=== PATIENT | female | born 1965 | race Caucasian/White ===

== ENCOUNTER → 2017-04-17 | Outpatient (CLI) | payer BC ==
[~2017-04-17] MED LIST: ALEVE220 MG PO; ALLEGRA ALLERG180 MG PO; CALCIUM 600+D1 EAC1 PO; DAILY MULTIPLE1 EACH PO; LISINOPRIL2.5 MG PO; MAGNESIUM400 M1 PO; OSTEO BI-FLEX1 EAC1 PO; SINGULAIR10 MG PO; TYLENOL EXTRA500 MG PO
== END | disposition home or self-care (01) ==
LOC: CDC 15:32
DX: Z01.810 Encounter for preprocedural cardiovascular examination (principal); R94.31 Abnormal electrocardiogram [ECG] [EKG]
CPT/HCPCS: 93000

== ENCOUNTER 2017-04-23 08:59 | Day surgery (SDC) | payer BC ==
[~2017-04-23] VITALS: Ht 162.6 cm; Wt 90.7 kg
[2017-04-23 09:34] VITALS: BP 156/85
[2017-04-23 19:40] VITALS: BP 126/61
[2017-04-23 23:41] VITALS: BP 120/59
[2017-04-24 03:58] VITALS: BP 112/57
[2017-04-24 07:09] LABS: EOSINOPHIL (%) 0 % (0-5); HEMATOCRIT 36.9 % (36.0-46.0); IMMATURE GRANULOCYTE (%) 0.4 % (0.0-0.7); IMMATURE GRANULOCYTE COUNT 0.1 K/uL; INSTRUMENT ABS NEUTROPHIL CT 10.8 K/uL; LYMPHOCYTE COUNT 1.9 K/uL (1.0-2.8); MCH 29.4 PG (29.0-34.0); MEAN PLAT.VOLUME 10.1 uM^3 (9.5-12.4); MONOCYTE (%) 8.3 % (3-12); MONOCYTE COUNT 1.2 K/uL (0-0.8); NEUTROPHIL (%) 77.4 % (45-76); NEUTROPHIL COUNT 10.8 K/uL (1.8-6.4); PLATELET COUNT 270 K/uL (156-360); RBC DIS.WIDTH-CV 12.8 % (11.8-14.6); RBC DIS.WIDTH-SD 43.1 % (39-53); RED BLOOD COUNT 4.01 M/uL (3.80-5.20)
[2017-04-24 07:10] VITALS: BP 123/62
[2017-04-24 07:38] LABS: ANION GAP 8 MEQ/L (2-14); CHLORIDE 104 MEQ/L (99-109); GFR ESTIMATE (CALCULATED) > 59 mL/min/; GLUCOSE 76 mg/dL (70-99); POTASSIUM 4.7 MEQ/L (3.7-5.4); SAMPLE HEMOLYSIS CHECK 0; SAMPLE ICTERIC CHECK 0; SAMPLE LIPEMIA CHECK 0; SODIUM 139 MEQ/L (136-147); UREA NITROGEN (BUN) 8 mg/dL (9-23)
[2017-04-24 11:10] VITALS: BP 124/63
[2017-04-24 14:14] VITALS: BP 129/65
== END 2017-04-24 14:32 | disposition home or self-care (01) ==
LOC: SDC → 2SOUTH 15:34 → 2EAST 15:34 → 2SOUTH 15:34 → ENRESERV 15:40 → 2EAST 17:36 → ENPENDDIS 04-24 → 2EAST 04-24 14:32
PROVIDERS: Obstetrics & Gynecology Gynecology
PROC: 0UTC4ZZ Resection of Cervix, Percutaneous Endoscopic Approach (ICD-10-PCS; principal; 2017-04-23)
PROC: 0UT74ZZ Resection of Bilateral Fallopian Tubes, Percutaneous Endoscopic Approach (ICD-10-PCS; principal; 2017-04-23)
PROC: 0T768DZ Dilation of Right Ureter with Intraluminal Device, Via Natural or Artificial Opening Endoscopic (ICD-10-PCS; principal; 2017-04-23)
PROC: 0UT94ZZ Resection of Uterus, Percutaneous Endoscopic Approach (ICD-10-PCS; principal; 2017-04-23)
PROC: 0UT24ZZ Resection of Bilateral Ovaries, Percutaneous Endoscopic Approach (ICD-10-PCS; principal; 2017-04-23)
DX: D25.0 Submucous leiomyoma of uterus (principal); N80.0 Endometriosis of uterus; N83.8 Other noninflammatory disorders of ovary, fallopian tube and broad ligament; N80.2 Endometriosis of fallopian tube; N94.6 Dysmenorrhea, unspecified; N92.1 Excessive and frequent menstruation with irregular cycle; I10 Essential (primary) hypertension; D50.0 Iron deficiency anemia secondary to blood loss (chronic); E66.9 Obesity, unspecified; Z68.34 Body mass index [BMI] 34.0-34.9, adult; Z80.41 Family history of malignant neoplasm of ovary
CPT/HCPCS: 80048; 85025; 87086; 88307; C1758; G0378; J0131; J0330; J0690; J1100; J1170; J1644; J1885; J2001; J2405; J2710; J2795; J3010; J3475; J7120; Q0175